=== PATIENT | male | born 1995 | race Caucasian/White ===

== ENCOUNTER 2018-11-13 10:26 | Emergency (ER) | payer OTHER, SELFPAY ==
[2018-11-13] MEDS ORDERED: ONDANSETRON 4 MG (ODT) TAB ONE (11:40)
--- NOTE | 2018-11-13 12:10 | EDPHYS ---
Physician Documentation [facility] Name: Pietro Mancera Age: 23 yrs Sex: Male : 1995 Arrival Date: 11/13/2018 Time: 10:30 Bed 20 Private MD: ED Physician Isidoro Stallworth HPI: 11/13 11:37 This 23 yrs old Male presents to ER via Ambulatory with complaints of kb Vomiting/Diarrhea. 11:38 The patient presents to the emergency department with nausea, vomiting, diarrhea. kb Onset: The symptoms/episode began/occurred this morning. Possible causes: bad food exposure, "fastfood". The symptoms are aggravated by nothing. The symptoms are alleviated by nothing. Associated signs and symptoms: Pertinent positives: diarrhea, nausea, vomiting, Pertinent negatives: abdominal pain, anorexia, belching, constipation, dysuria, fever, flatulence, GI bleeding, hematuria. Severity of symptoms: At their worst the symptoms were mild moderate in the emergency department the symptoms have resolved. The patient has not experienced similar symptoms in the past. The patient has not recently seen a physician. 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 Reports diarrhea x3-4 and vomiting x3. States he feels better now, but work told him to come get checked out. Historical: - Allergies: 10:41 No Known Allergies; hj - Home Meds: 10:41 None [Active]; hj - PMHx: 10:41 None; hj - PSHx: 10:41 None; hj - Immunization history:: Adult Immunizations up to date. - Social history:: Smoking status: Patient/guardian denies using tobacco, Patient/guardian denies using alcohol. - Ebola Screening: : Patient negative for fever greater than or equal to 101.5 degrees Fahrenheit, and additional compatible Ebola Virus Disease symptoms Patient denies exposure to infectious person Patient denies travel to an Ebola-affected area in the 21 days before illness onset. ROS: 11:38 Constitutional: Negative for fever, chills, and weight loss, ENT: Negative for injury, kb pain, and discharge, Neck: Negative for injury, pain, and swelling, Cardiovascular: Negative for chest pain, palpitations, and edema, Respiratory: Negative for shortness of breath, cough, wheezing, and pleuritic chest pain, Back: Negative for injury and pain, : Negative for injury, bleeding, discharge, and swelling, MS/Extremity: Negative for injury and deformity, Skin: Negative for injury, rash, and discoloration, Neuro: Negative for headache, weakness, numbness, tingling, and seizure. 11:38 Abdomen/GI: Positive for nausea, vomiting, and diarrhea, Negative for abdominal pain. Exam: 11:38 Constitutional: This is a well developed, well nourished patient who is awake, alert, kb and in no acute distress. Head/Face: Normocephalic, atraumatic. ENT: Nares patent. No nasal discharge, no septal abnormalities noted. Tympanic membranes are normal and external auditory canals are clear. Oropharynx with no redness, swelling, or masses, exudates, or evidence of obstruction, uvula midline. Mucous membranes moist. Neck: Trachea midline, no thyromegaly or masses palpated, and no cervical lymphadenopathy. Supple, full range of motion without nuchal rigidity, or vertebral point tenderness. No Meningismus. Chest/axilla: Normal chest wall appearance and motion. Nontender with no deformity. No lesions are appreciated. Cardiovascular: Regular rate and rhythm with a normal S1 and S2. No gallops, murmurs, or rubs. Normal PMI, no JVD. No pulse deficits. Respiratory: Lungs have equal breath sounds bilaterally, clear to auscultation and percussion. No rales, rhonchi or wheezes noted. No increased work of breathing, no retractions or nasal flaring. Abdomen/GI: Soft, non-tender, with normal bowel sounds. No distension or tympany. No guarding or rebound. No evidence of tenderness throughout. Skin: Warm, dry with normal turgor. Normal color with no rashes, no lesions, and no evidence of cellulitis. MS/ Extremity: Pulses equal, no cyanosis. Neurovascular intact. Full, normal range of motion. Neuro: Awake and alert, GCS 15, oriented to person, place, time, and situation. Cranial nerves II-XII grossly intact. Motor strength 5/5 in all extremities. Sensory grossly intact. Cerebellar exam normal. Normal gait. Vital Signs: 10:42 BP 137 / 82; Pulse 87; Resp 18; Temp 97.8(TE); Pulse Ox 99% on R/A; Weight 88.9 kg; hj Height 5 ft. 11 in. (180.34 cm); Pain 0/10; 11:40 BP 103 / 66; Pulse 71; Resp 14; Pulse Ox 97% ; bp 12:22 BP 101 / 69; Pulse 67; Resp 14; Pulse Ox 99% ; bp 10:42 Body Mass Index 27.33 (88.90 kg, 180.34 cm) hj MDM: 10:47 Patient medically screened. kb 11:38 Data reviewed: vital signs, nurses notes. Data interpreted: Pulse oximetry: on room air kb is 99 %. Interpretation: normal. 11:43 ED course: Pt prefers not to have blood work done. He believes symptoms are from kb something he ate and he is feeling better now. Will give zofran and PO challenge. . 12:07 Counseling: I had a detailed discussion with the patient and/or guardian regarding: the kb historical points, exam findings, and any diagnostic results supporting the discharge/admit diagnosis, the need for outpatient follow up, a family practitioner, to return to the emergency department if symptoms worsen or persist or if there are any questions or concerns that arise at home. ED course: Pt tolerating PO intake. Would like to go home and can hydrate with PO fluids. No abd pain. Will return if needed. . 11/13 11:10 Order name: PO challenge; Complete Time: 11:53 kb Administered Medications: 11:20 Drug: Zofran 4 mg Route: PO; bp 11:53 Follow up: Response: Nausea is decreased bp Disposition: 11/13/18 12:10 Discharged to Home. Impression: Nausea and vomiting, Diarrhea, unspecified. - Condition is Stable. - Discharge Instructions: Food Choices to Help Relieve Diarrhea, Adult, Nausea and Vomiting, Adult, [id number], Diarrhea, Adult, [id number]. - Prescriptions for Zofran 4 mg Oral Tablet - take 1 tablet by ORAL route every 6 hours As needed; 20 tablet. - Medication Reconciliation Form, Thank You Letter, Antibiotic Education, Prescription Opioid Use, Work release form form. - Follow up: Emergency Department; When: As needed; Reason: Worsening of condition. Follow up: Private Physician; When: 2 - 3 days; Reason: Recheck today's complaints, Continuance of care, Re-evaluation by your physician. Addendum: 11/15/2018 08:06 Co-signature as Attending Physician, Isidoro Stallworth MD I agree with the assessment and k dr plan of care. Signatures: Felisha Clements, SLOTTER OPERATOR-C SLOTTER OPERATOR-CkIsidoro Doshi MD MD [facility] Fernie Zurita, RN RN hj Angelo Redding, RN RN bp Corrections: (The following items were deleted from the chart) 11/13 12:23 12:10 11/13/2018 12:10 Discharged to Home. Impression: Nausea and vomiting; Diarrhea, bp unspecified. Condition is Stable. Forms are Medication Reconciliation Form, Thank You Letter, Antibiotic Education, Prescription Opioid Use. Follow up: Emergency Department; When: As needed; Reason: Worsening of condition. Follow up: Private Physician; When: 2 - 3 days; Reason: Recheck today's complaints, Continuance of care, Re-evaluation by your physician. kb
--- NOTE | 2018-11-13 12:10 | ER ---
Nurse's Notes [facility] Name: Pietro Mancera Age: 23 yrs Sex: Male : 1995 Arrival Date: 11/13/2018 Time: 10:30 Bed 20 Private MD: Diagnosis: Nausea and vomiting;Diarrhea, unspecified Presentation: 11/13 10:40 Presenting complaint: Patient states: i was sent home form work today, vomited x 2 and hj diarrhea x 4; denies abd pain; denies fever and chills; denies taking meds [employer];. Transition of care: patient was not received from another setting of care. Onset of symptoms was November 13, 2018. Risk Assessment: Do you want to hurt yourself or someone else? Patient reports no desire to harm self or others. Initial Sepsis Screen: Does the patient meet any 2 criteria? No. Patient's initial sepsis screen is negative. Does the patient have a suspected source of infection? No. Patient's initial sepsis screen is negative. Care prior to arrival: None. 10:40 Method Of Arrival: Ambulatory 10:40 Acuity: SAAD 3 hj Triage Assessment: 10:41 General: Appears in no apparent distress. uncomfortable, Behavior is calm, cooperative, hj appropriate for age. Pain: Denies pain. GI: Reports diarrhea, nausea, vomiting. Historical: - Allergies: 10:41 No Known Allergies; hj - Home Meds: 10:41 None [Active]; hj - PMHx: 10:41 None; hj - PSHx: 10:41 None; hj - Immunization history:: Adult Immunizations up to date. - Social history:: Smoking status: Patient/guardian denies using tobacco, Patient/guardian denies using alcohol. - Ebola Screening: : Patient negative for fever greater than or equal to 101.5 degrees Fahrenheit, and additional compatible Ebola Virus Disease symptoms Patient denies exposure to infectious person Patient denies travel to an Ebola-affected area in the 21 days before illness onset. Screenin:42 Abuse screen: Denies threats or abuse. Denies injuries from another. Nutritional hj screening: No deficits noted. Tuberculosis screening: No symptoms or risk factors identified. Fall Risk None identified. Assessment: 10:42 GI: Abdomen is non-distended. hj 10:45 General: SEE TRIAGE NOTE. bp 11:40 Reassessment: PO CHALLENGE IN PROCESS. bp 12:22 Reassessment: PT D/C HOME AMBULATORY, DX WITH NAUSEA/VOMITING. bp Vital Signs: 10:42 BP 137 / 82; Pulse 87; Resp 18; Temp 97.8(TE); Pulse Ox 99% on R/A; Weight 88.9 kg; hj Height 5 ft. 11 in. (180.34 cm); Pain 0/10; 11:40 BP 103 / 66; Pulse 71; Resp 14; Pulse Ox 97% ; bp 12:22 BP 101 / 69; Pulse 67; Resp 14; Pulse Ox 99% ; bp 10:42 Body Mass Index 27.33 (88.90 kg, 180.34 cm) hj ED Course: 10:30 Patient arrived in ED. rg4 10:41 Triage completed. hj 10:42 Arm band placed on right wrist. hj 10:42 Patient has correct armband on for positive identification. Placed in gown. Bed in low hj position. Call light in reach. Side rails up X 1. 10:46 Felisha Clements FNP-C is [facility]. kb 10:46 Isidoro Stallworth MD is Attending Physician. kb 10:46 Angelo Redding, RN is Primary Nurse. bp 12:23 No provider procedures requiring assistance completed. Patient did not have IV access bp during this emergency room visit. Administered Medications: 11:20 Drug: Zofran 4 mg Route: PO; bp 11:53 Follow up: Response: Nausea is decreased bp Outcome: 12:10 Discharge ordered by MD. kb 12:23 Discharged to home ambulatory. bp 12:23 Condition: stable 12:23 Discharge instructions given to patient, Instructed on discharge instructions, follow up and referral plans. medication usage, Demonstrated understanding of instructions, follow-up care, medications, Prescriptions given X 1. 12:23 Patient left the ED. bp Signatures: Felisha Clements FNP-C FNP-Fernie Marsh RN RN hj Garcia, Rubi rg4 Angelo Redding, TOOTIE RN bp Corrections: (The following items were deleted from the chart) 10:44 10:42 Pulse 87bpm; Resp 18bpm; Pulse Ox 99% RA; Temp 97.8F Temporal; 88.9 kg; Height 5 hj ft. 11 in.; BMI: 27.3; Pain 0/10; hj
== END 2018-11-13 12:23 | disposition home or self-care (01) ==
LOC: ER 10:26
DX: R19.7 Diarrhea, unspecified (principal)
CPT/HCPCS: 99283

== ENCOUNTER 2018-11-29 18:45 | Emergency (ER) | payer SELFPAY ==
--- NOTE | 2018-11-29 19:10 | ER ---
Nurse's Notes [facility] Name: Pietro Mancera Age: 23 yrs Sex: Male : 1995 Arrival Date: 11/29/2018 Time: 18:47 Bed 15 Private MD: None, None Diagnosis: Dental caries Presentation: 11/29 18:51 Presenting complaint: Patient states: Right upper molar pain 10/10 since this morning. hb Transition of care: patient was not received from another setting of care. Onset of symptoms was November 29, 2018. Risk Assessment: Do you want to hurt yourself or someone else? Patient reports no desire to harm self or others. Initial Sepsis Screen: Does the patient meet any 2 criteria? No. Patient's initial sepsis screen is negative. Does the patient have a suspected source of infection? No. Patient's initial sepsis screen is negative. Care prior to arrival: None. 18:51 Method Of Arrival: Ambulatory hb 18:51 Acuity: SAAD 4 hb Historical: - Allergies: 18:52 No Known Allergies; hb - Home Meds: 18:52 None [Active]; hb - PMHx: 18:52 None; hb - PSHx: 18:52 None; hb - Immunization history:: Adult Immunizations up to date. - Social history:: Smoking status: Patient/guardian denies using tobacco. - Ebola Screening: : No symptoms or risks identified at this time. Screenin:53 Abuse screen: Denies threats or abuse. Denies injuries from another. Nutritional hb screening: No deficits noted. Tuberculosis screening: No symptoms or risk factors identified. Fall Risk None identified. Assessment: 19:35 General: Appears in no apparent distress. comfortable, Behavior is calm, cooperative, jb4 appropriate for age. Pain: Complains of pain in upper right tooth. Pain does not radiate. Pain currently is 0 out of 10 on a pain scale. at worst was 10 out of 10 on a pain scale. Neuro: Level of Consciousness is awake, alert, obeys commands, Oriented to person, place, time, situation. Cardiovascular: Patient's skin is warm and dry. Respiratory: Airway is patent Respiratory effort is even, unlabored, Respiratory pattern is regular, symmetrical. GI: No signs and/or symptoms were reported involving the gastrointestinal system. : No signs and/or symptoms were reported regarding the genitourinary system. EENT: Throat is clear. Derm: Skin is intact, Skin is pink, warm \T\ dry. Musculoskeletal: Circulation, motion, and sensation intact. Vital Signs: 18:52 BP 124 / 92; Pulse 74; Resp 16; Temp 98.8; Pulse Ox 100% on R/A; Pain 10/10; hb ED Course: 18:47 Patient arrived in ED. sb2 18:48 None, None is Private Physician. sb2 18:52 Triage completed. hb 18:52 Arm band placed on. hb 18:59 Scotty Rizzo NP is PHCP. pm1 18:59 Garrison Hernandez MD is Attending Physician. pm1 19:07 Magan Alfonso, RN is Primary Nurse. jb4 19:35 Patient has correct armband on for positive identification. Bed in low position. Call jb4 light in reach. Side rails up X 1. Pulse ox on. NIBP on. 19:43 No provider procedures requiring assistance completed. Patient did not have IV access jb4 during this emergency room visit. Administered Medications: 19:36 Drug: [place] 10 mg-325 mg 1 tabs Route: PO; jb4 19:36 Follow up: Response: No adverse reaction jb4 Outcome: 19:10 Discharge ordered by MD. pm1 19:35 Discharged to home ambulatory, with friend. jb4 19:35 Condition: stable 19:35 Discharge instructions given to patient, Instructed on discharge instructions, follow up and referral plans. medication usage, Demonstrated understanding of instructions, follow-up care, medications, Prescriptions given X 2. 19:44 Patient left the ED. jb4 Signatures: Scotty Rizzo NP LINE MAINTENANCE TECHNICIAN pm1 Tabby De Leon RN RN Magan Alfonso, RN RN jb4 Luz Quintero sb2
--- NOTE | 2018-11-29 19:11 | EDPHYS ---
Physician Documentation [facility] Name: Pietro Mancera Age: 23 yrs Sex: Male : 1995 Arrival Date: 11/29/2018 Time: 18:47 Bed 15 Private MD: None, None ED Physician Garrison Hernandez HPI: 11/29 19:06 This 23 yrs old Male presents to ER via Ambulatory with complaints of pm1 Toothache. 19:06 The patient presents with pain. The problem is located in the upper left third molar. pm1 Onset: The symptoms/episode began/occurred this morning. Duration: The symptoms are continuous. Modifying factors: The symptoms are alleviated by nothing, the symptoms are aggravated by air, chewing, food. Associated signs and symptoms: Pertinent negatives: chills, dysphagia, fever, inability to eat, nausea, redness in area, swelling, vomiting. Severity of symptoms: in the emergency department the symptoms are actually worse. decayed tooth present for multiple months. The patient has not recently seen a physician. Historical: - Allergies: 18:52 No Known Allergies; hb - Home Meds: 18:52 None [Active]; hb - PMHx: 18:52 None; hb - PSHx: 18:52 None; hb - Immunization history:: Adult Immunizations up to date. - Social history:: Smoking status: Patient/guardian denies using tobacco. - Ebola Screening: : No symptoms or risks identified at this time. ROS: 19:06 Constitutional: Negative for fever, chills, and weight loss, Eyes: Negative for injury, pm1 pain, redness, and discharge, Neck: Negative for injury, pain, and swelling. 19:06 Cardiovascular: Negative for chest pain, palpitations, and edema, Respiratory: Negative for shortness of breath, cough, wheezing, and pleuritic chest pain, Abdomen/GI: Negative for abdominal pain, nausea, vomiting, diarrhea, and constipation, Back: Negative for injury and pain, MS/Extremity: Negative for injury and deformity, Skin: Negative for injury, rash, and discoloration, Neuro: Negative for headache, weakness, numbness, tingling, and seizure. 19:06 ENT: Positive for dental pain, Negative for drainage from ear(s), ear pain, rhinorrhea, sinus congestion, sinus pain, sore throat, difficulty swallowing, difficulty handling secretions. Exam: 19:06 Constitutional: This is a well developed, well nourished patient who is awake, alert, pm1 and in no acute distress. Head/Face: Normocephalic, atraumatic. Eyes: Pupils equal round and reactive to light, extra-ocular motions intact. Lids and lashes normal. Conjunctiva and sclera are non-icteric and not injected. Cornea within normal limits. Periorbital areas with no swelling, redness, or edema. 19:06 Neck: Trachea midline, no thyromegaly or masses palpated, and no cervical lymphadenopathy. Supple, full range of motion without nuchal rigidity, or vertebral point tenderness. No Meningismus. Chest/axilla: Normal chest wall appearance and motion. Nontender with no deformity. No lesions are appreciated. Cardiovascular: Regular rate and rhythm with a normal S1 and S2. No gallops, murmurs, or rubs. Normal PMI, no JVD. No pulse deficits. Respiratory: Lungs have equal breath sounds bilaterally, clear to auscultation and percussion. No rales, rhonchi or wheezes noted. No increased work of breathing, no retractions or nasal flaring. Back: No spinal tenderness. No costovertebral tenderness. Full range of motion. Skin: Warm, dry with normal turgor. Normal color with no rashes, no lesions, and no evidence of cellulitis. MS/ Extremity: Pulses equal, no cyanosis. Neurovascular intact. Full, normal range of motion. 19:06 ENT: External ear(s): are unremarkable, Ear canal(s): are normal, TM's: are normal, Nose: is normal, Mouth: is normal, no abscess, no drooling, (-) tongue elevation (-) trismus Posterior pharynx: is normal, airway is patent, no erythema, no exudate, no peritonsilar mass, no pooling of secretions, no swelling, Dental exam: abscess, is not appreciated, dental caries, that is moderate, specifically in the upper left third molar (#16). 19:06 Neuro: Orientation: is normal, Motor: is normal, moves all fours, Gait: is steady, at a normal pace, without difficulty. Vital Signs: 18:52 BP 124 / 92; Pulse 74; Resp 16; Temp 98.8; Pulse Ox 100% on R/A; Pain 10/10; hb MDM: 18:59 Patient medically screened. pm1 19:09 Data reviewed: vital signs. Data interpreted: Pulse oximetry: on room air is 100 %. pm1 Interpretation: normal. Counseling: I had a detailed discussion with the patient and/or guardian regarding: the historical points, exam findings, and any diagnostic results supporting the discharge/admit diagnosis, the need for outpatient follow up, for definitive care, a dentist, to return to the emergency department if symptoms worsen or persist or if there are any questions or concerns that arise at home. Administered Medications: 19:36 Drug: [place] 10 mg-325 mg 1 tabs Route: PO; jb4 19:36 Follow up: Response: No adverse reaction jb4 Disposition: 11/29/18 19:10 Discharged to Home. Impression: Dental caries. - Condition is Stable. - Discharge Instructions: Dental Pain. - Prescriptions for Amoxicillin 500 mg Oral Capsule - take 1 capsule by ORAL route every 8 hours for 10 days; 30 tablet. Tylenol- Codeine #3 300-30 mg Oral Tablet - take 2 tablets by ORAL route every 6 hours As needed; 20 tablet. - Medication Reconciliation Form, Thank You Letter, Antibiotic Education, Prescription Opioid Use, Work release form form. - Follow up: Emergency Department; When: As needed; Reason: Worsening of condition. Follow up: Private Physician; When: 2 - 3 days; Reason: Recheck today's complaints, Continuance of care, Re-evaluation by your physician. - Problem is new. - Symptoms have improved. Addendum: 12/01/2018 07:13 Co-signature as Attending Physician, Garrison Hernandez MD. r n Signatures: Garrison Hernandez MD MD rn Marinas, Patrick, NP SUPPORT SERVICE TECH pm1 Tabby De Leon RN RN Magan Kelley RN RN jb4 Corrections: (The following items were deleted from the chart) 11/29 19:44 19:10 11/29/2018 19:10 Discharged to Home. Impression: Dental caries. Condition is jb4 Stable. Forms are Medication Reconciliation Form, Thank You Letter, Antibiotic Education, Prescription Opioid Use. Follow up: Emergency Department; When: As needed; Reason: Worsening of condition. Follow up: Private Physician; When: 2 - 3 days; Reason: Recheck today's complaints, Continuance of care, Re-evaluation by your physician. Problem is new. Symptoms have improved. pm1
[2018-11-29] MEDS ORDERED: HYDROCODONE/APAP 10/325 TAB ONE (19:23)
== END 2018-11-29 19:44 | disposition home or self-care (01) ==
LOC: ER 18:45
DX: K02.9 Dental caries, unspecified (principal)
CPT/HCPCS: 99283

== ENCOUNTER 2019-07-29 19:54 | Emergency (ER) | payer SELFPAY ==
[2019-07-29] MEDS ORDERED: LIDOCAINE 1% W/EPI 1:100,000 MDV 20 ML VIAL ONE (21:28)
[2019-07-29] MEDS ORDERED: TETANUS & DIPHTHERIA TOX,ADULT 0.5 ML VIAL ONE (21:45)
[2019-07-29] MEDS ORDERED: HYDROCODONE/APAP 7.5/325 MG TAB ONE ×2 (22:07→22:16)
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
--- NOTE | 2019-07-30 09:48 | RAD REPORT ---
EXAM DESCRIPTION: CT - Head C Spine Mpr Wo Con - 07/29/2019 9:36 pm CLINICAL HISTORY: Trauma. COMPARISON: None. TECHNIQUE: CT scan of the brain and cervical spine without IV contrast. This exam was performed acco rding to our departmental dose-optimization program, which includes automated exposure control, adjus tment of the mA and/or kV according to patient size and/or use of iterative reconstruction technique. FINDINGS: BRAIN: The ventricles, cisterns, and sulci are age-appropriate. No evidence of acute infarction, intracrania l hemorrhage, extra-axial fluid collection, or midline shift. No air-fluid levels are seen in the par anasal sinuses to suggest acute sinusitis. No depressed skull fracture. CERVICAL SPINE: No acute cervical fracture or prevertebral soft tissue swelling. There is straightening of the normal cervical lordosis, which may be due to cervical collar, muscle spasm, or patient positioning. The fa cet joints and disc spaces are preserved. No advanced spinal canal stenosis. IMPRESSION: 1. No acute intracranial hemorrhage. 2. No acute fracture or subluxation of the cervical spine. Electronically signed by: Shimon Tsang MD 07/29/2019 9:45 PM CDT Due to temporary technical issues with the PACS/Fluency reporting system, reports are being signed by the in house radiologist as a courtesy to ensure prompt reporting. The interpreting radiologist is f ully responsible for the content of the report.
== END 2019-07-29 22:54 | disposition home or self-care (01) ==
LOC: ER 19:54
PROC: 0JQ00ZZ Repair Scalp Subcutaneous Tissue and Fascia, Open Approach (ICD-10-PCS; principal; 2019-07-29)
DX: S01.01XA Laceration without foreign body of scalp, initial encounter (principal); W50.0XXA Accidental hit or strike by another person, initial encounter; Y93.11 Activity, swimming; Z23 Encounter for immunization
CPT/HCPCS: 70450; 72125; 90471; 90714; 99284

== ENCOUNTER 2019-08-10 14:29 | Emergency (ER) | payer SELFPAY ==
--- NOTE | 2019-08-10 14:54 | ER ---
Nurse's Notes [facility] Name: Pietro Mancera Age: 24 yrs Sex: Male : 1995 Arrival Date: 08/10/2019 Time: 14:31 Bed Waiting Private MD: None, None Diagnosis: Encounter for removal of sutures-damion Presentation: 08/10 14:50 Presenting complaint: Patient states: He had damion put in 12 days ago, now he is here aj1 to have them taken out. Transition of care: patient was not received from another setting of care. Onset of symptoms was 2018. Risk Assessment: Do you want to hurt yourself or someone else? Patient reports no desire to harm self or others. Initial Sepsis Screen: Does the patient meet any 2 criteria? No. Patient's initial sepsis screen is negative. Does the patient have a suspected source of infection? No. Patient's initial sepsis screen is negative. 14:50 Method Of Arrival: Ambulatory aj 14:50 Acuity: SAAD 5 aj1 14:52 Care prior to arrival: None. aj Triage Assessment: 14:50 General: Appears in no apparent distress. comfortable, Behavior is calm, cooperative, aj1 appropriate for age. Pain: Denies pain. Neuro: Level of Consciousness is awake, alert, obeys commands. Cardiovascular: Patient's skin is warm and dry. Respiratory: Airway is patent Respiratory effort is even, unlabored, Respiratory pattern is regular, symmetrical. GI: No signs and/or symptoms were reported involving the gastrointestinal system. : No signs and/or symptoms were reported regarding the genitourinary system. Derm: No signs and/or symptoms reported regarding the dermatologic system. Skin is pink, warm \T\ dry. normal. Musculoskeletal: No signs and/or symptoms reported regarding the musculoskeletal system. Circulation, motion, and sensation intact. Historical: - Allergies: 14:50 No Known Allergies; aj1 - Home Meds: 14:50 None [Active]; aj1 - PMHx: 14:50 None; aj1 - PSHx: 14:50 None; aj1 - Immunization history:: Adult Immunizations up to date. - Social history:: Smoking status: Patient/guardian denies using tobacco. - Ebola Screening: : Patient denies travel to an Ebola-affected area in the 21 days before illness onset. Screenin:51 Abuse screen: Denies threats or abuse. Denies injuries from another. Nutritional aj1 screening: No deficits noted. Tuberculosis screening: No symptoms or risk factors identified. Fall Risk None identified. Assessment: 14:51 Reassessment: see triage assessment. General: Appears in no apparent distress. aj1 comfortable, Behavior is calm, cooperative, appropriate for age. Vital Signs: 14:50 BP 125 / 83; Pulse 60; Resp 18; Temp 97.4; Pulse Ox 100% on R/A; Weight 86.18 kg (R); aj1 Height 5 ft. 11 in. (180.34 cm) (R); Pain 0/10; 14:50 Body Mass Index 26.50 (86.18 kg, 180.34 cm) aj1 ED Course: 14:31 Patient arrived in ED. mr 14:31 None, None is Private Physician. mr 14:35 Felisha Clements [facility]C [facility] kb 14:35 Garrison Hernandez MD is Attending Physician. kb 14:50 Triage completed. aj1 14:50 Arm band placed on Patient placed in an exam room. aj1 14:51 Patient has correct armband on for positive identification. Bed in low position. Call aj1 light in reach. Side rails up X 1. 14:51 No provider procedures requiring assistance completed. aj1 14:52 Patient did not have IV access during this emergency room visit. aj1 Administered Medications: No medications were administered Outcome: 14:51 Discharged to home ambulatory. aj1 14:51 Condition: good 14:51 Discharge instructions given to patient, Instructed on discharge instructions, follow up and referral plans. Demonstrated understanding of instructions, follow-up care. 14:53 Discharge ordered by . kb 14:55 Patient left the ED. aj1 Signatures: Felisha Clements FNP-C FNP-Ckb Johnson, Angela RN RN aj1 Jenna Schilling mr
--- NOTE | 2019-08-10 14:55 | EDPHYS ---
Physician Documentation [facility] Name: Pietro Mancera Age: 24 yrs Sex: Male : 1995 Arrival Date: 08/10/2019 Time: 14:31 Bed Waiting Private MD: None, None ED Physician Garrison Hernandez HPI: 08/10 14:50 This 24 yrs old Male presents to ER via Unassigned with complaints of Staple kb Removal. 14:50 The patient has damion on the scalp. Previous treatment: The patient was initially kb treated 12 day(s) ago, the care was rendered at [facility], Treatment type: The patient's original treatment included damion. Sutures/damion progress: The patient has no c/o's. The wound is well-healing with no redness, swelling, discharge, or dehiscence reported. The patient has not experienced similar symptoms in the past. The patient has not recently seen a physician. Historical: - Allergies: 14:50 No Known Allergies; aj1 - Home Meds: 14:50 None [Active]; aj1 - PMHx: 14:50 None; aj1 - PSHx: 14:50 None; aj1 - Immunization history:: Adult Immunizations up to date. - Social history:: Smoking status: Patient/guardian denies using tobacco. - Ebola Screening: : Patient denies travel to an Ebola-affected area in the 21 days before illness onset. ROS: 14:52 Constitutional: Negative for fever, chills, and weight loss, Cardiovascular: Negative kb for chest pain, palpitations, and edema, Respiratory: Negative for shortness of breath, cough, wheezing, and pleuritic chest pain, Abdomen/GI: Negative for abdominal pain, nausea, vomiting, diarrhea, and constipation, MS/Extremity: Negative for injury and deformity, Neuro: Negative for headache, weakness, numbness, tingling, and seizure. 14:52 Skin: Positive for damion in place top of scalp. Exam: 14:51 Constitutional: This is a well developed, well nourished patient who is awake, alert, kb and in no acute distress. Head/Face: Normocephalic, atraumatic. Chest/axilla: Normal chest wall appearance and motion. Nontender with no deformity. No lesions are appreciated. Cardiovascular: Regular rate and rhythm with a normal S1 and S2. No gallops, murmurs, or rubs. Normal PMI, no JVD. No pulse deficits. Respiratory: Lungs have equal breath sounds bilaterally, clear to auscultation and percussion. No rales, rhonchi or wheezes noted. No increased work of breathing, no retractions or nasal flaring. Abdomen/GI: Soft, non-tender, with normal bowel sounds. No distension or tympany. No guarding or rebound. No evidence of tenderness throughout. MS/ Extremity: Pulses equal, no cyanosis. Neurovascular intact. Full, normal range of motion. Neuro: Awake and alert, GCS 15, oriented to person, place, time, and situation. Cranial nerves II-XII grossly intact. Motor strength 5/5 in all extremities. Sensory grossly intact. Cerebellar exam normal. Normal gait. 14:51 Skin: Wound recheck: Staple laceration closure: the wound is healing well, the edges are well approximated, no evidence of dehiscence, no drainage, no erythema, no swelling. Vital Signs: 14:50 BP 125 / 83; Pulse 60; Resp 18; Temp 97.4; Pulse Ox 100% on R/A; Weight 86.18 kg (R); aj1 Height 5 ft. 11 in. (180.34 cm) (R); Pain 0/10; 14:50 Body Mass Index 26.50 (86.18 kg, 180.34 cm) aj1 Procedures: 14:51 Suture/Staple removal: Removed 7 damion, from scalp, site appears well healed, Patient kb tolerated well. MDM: 14:50 Patient medically screened. kb 14:51 Data reviewed: vital signs, nurses notes. Data interpreted: Pulse oximetry: on room air kb is 100 %. Interpretation: normal. Counseling: I had a detailed discussion with the patient and/or guardian regarding: the historical points, exam findings, and any diagnostic results supporting the discharge/admit diagnosis, the need for outpatient follow up, a family practitioner, to return to the emergency department if symptoms worsen or persist or if there are any questions or concerns that arise at home. Administered Medications: No medications were administered Disposition: 18:31 Co-signature as Attending Physician, Garrison Hernandez MD. rn Disposition: 08/10/19 14:53 Discharged to Home. Impression: Encounter for removal of sutures - damion. - Condition is Stable. - Discharge Instructions: Suture Removal, Care After. - Medication Reconciliation Form, Thank You Letter, Antibiotic Education, Prescription Opioid Use form. - Follow up: Emergency Department; When: As needed; Reason: Worsening of condition. Follow up: Private Physician; When: 2 - 3 days; Reason: Recheck today's complaints, Continuance of care, Re-evaluation by your physician. Signatures: Felisha Clements, BAN-C BAN-Leidy Barragan RN RN aj1 Garrison Hernandez MD MD broadcast journalist: (The following items were deleted from the chart) 14:55 14:53 08/10/2019 14:53 Discharged to Home. Impression: Encounter for removal of sutures aj1 - damion. Condition is Stable. Forms are Medication Reconciliation Form, Thank You Letter, Antibiotic Education, Prescription Opioid Use. Follow up: Emergency Department; When: As needed; Reason: Worsening of condition. Follow up: Private Physician; When: 2 - 3 days; Reason: Recheck today's complaints, Continuance of care, Re-evaluation by your physician. kb
[2019-08-10 15:02] VITALS: BP 125/83; TEMP 97.4; O2SAT 100
== END 2019-08-10 14:55 | disposition home or self-care (01) ==
LOC: ER 14:29
DX: Z48.02 Encounter for removal of sutures (principal)
CPT/HCPCS: 99281

== ENCOUNTER 2020-08-15 06:34 | Emergency (ER) | payer SELFPAY ==
[2020-08-15 06:58] LABS: Absolute Lymphocytes (CBC) 2.9 K/uL (0.7-4.9); Hematocrit 46.6 % (39.6-49.0); Lymphocytes % 52.4 % (15.3-44.8); MPV 7.5 fL (7.6-11.3); RBC Red Blood Cell Count 5.36 M/uL (4.33-5.43)
[2020-08-15 07:17] LABS: Albumin 4.9 g/dL (3.4-5.0); Bilirubin Direct 0.3 mg/dL (0-0.2); Bilirubin Total 1.7 mg/dL (0.2-1.0); Potassium 3.5 mmol/L (3.5-5.1); Protein, Total 8.6 g/dL (6.4-8.2)
[2020-08-15 07:38] LABS: Blood Morphology Comment NOT SEEN (NOT SEEN); Platelet Estimate ADEQ
[2020-08-15] MEDS ORDERED: ONDANSETRON 4 MG/2 ML VIAL ONE (07:53)
--- NOTE | 2020-08-15 07:54 | RAD REPORT ---
EXAM DESCRIPTION: CT - Abdomen Pelvis W Contrast - 08/15/2020 7:34 am CLINICAL HISTORY: upper abd pain, hematemesis COMPARISON: No comparisons TECHNIQUE: Biphasic, helical CT imaging of the abdomen and pelvis was performed following 100 ml non -ionic IV contrast. No oral contrast administered. All CT scans are performed using dose optimization technique as appropriate and may include automated exposure control or mA/KV adjustment according to patient size. FINDINGS: No suspicious findings in the lung bases. Liver is borderline fatty infiltrated. No focal liver lesion. Portal vein is unremarkable. Gallbladde r and biliary tree within normal limits. No pancreatitis or acute pancreatic process. Spleen is unrem arkable. Symmetric renal function is seen with no hydronephrosis or suspicious renal mass. No pyelonephritis o r acute parenchymal process. No bladder abnormalities. No adrenal abnormalities. No gastric wall thickening, mass or edema. No stranding in the fatty tissues adjacent to the stomach. Small bowel and colon show no active process. Appendix is normal. No free air, free fluid or inflammatory stranding. No hernia, mass or bulky lymphadenopathy. No suspicious bony findings. IMPRESSION: Contrast enhanced CT abdomen and pelvis showing no significant or suspicious finding.
[2020-08-15] MEDS ORDERED: MAGNE/ALUM HYDROXD 30 ML UCUP ONE (08:07)
[2020-08-15] MEDS ORDERED: NA CHLORIDE 0.9% 1,000 ML ONE (08:07)
[2020-08-15] MEDS ORDERED: PANTOPRAZOLE 40 MG INJ ONE (08:07)
[2020-08-15] MEDS ORDERED: LIDOCAINE VISCOUS 2% SOLN 15 ML UDC ONE (08:07)
--- NOTE | 2020-08-15 08:21 | RAD REPORT ---
EXAM DESCRIPTION: US - Abdomen Exam Limited - 08/15/2020 7:49 am CLINICAL HISTORY: EPIGASTRIC PAIN COMPARISON: Abdomen Pelvis W Contrast dated 08/15/2020 FINDINGS: No gallstones, sludge or other abnormalities within the gallbladder lumen. There is no wal l thickening or pericholecystic fluid. No common duct stone or biliary tree dilatation identified. IMPRESSION: Normal gallbladder and biliary tree ultrasound.
--- NOTE | 2020-08-15 09:23 | EDPHYS ---
Physician Documentation [facility] Name: Pietro Mancera Age: 25 yrs Sex: Male : 1995 Arrival Date: 08/15/2020 Time: 06:35 Bed 6 Private MD: ED Physician Garrison Hernandez HPI: 08/15 07:36 This 25 yrs old Male presents to ER via Ambulatory with complaints of rn Vomiting, Abdominal Pain. 07:36 The patient presents to the emergency department with nausea, vomiting, diarrhea, rn abdominal pain. 07:37 Onset: The symptoms/episode began/occurred 2 day(s) ago. Possible causes: unknown. The rn symptoms are aggravated by nothing. The symptoms are alleviated by nothing. Severity of symptoms: At their worst the symptoms were mild in the emergency department the symptoms are unchanged. The patient has experienced a previous episode. The patient has not recently seen a physician. Reports upper abd pain, + nausea/vomiting/diarrhea. Reports small amount of bright red blood in emesis, noticed blood after 1-2 days of vomiting, no dark stool or blood in stool. Reports hx of acid reflux and gastritis in past, similar to this episode but didn't throw up blood last time. . Historical: - Allergies: 06:48 No Known Allergies; ea - Home Meds: 06:48 None [Active]; ea - PMHx: 06:48 None; ea - PSHx: 06:48 None; ea - Immunization history:: Adult Immunizations up to date. - Social history:: Smoking status: Patient denies any tobacco usage or history of. - Family history:: not pertinent. - Hospitalizations: : No recent hospitalization is reported. ROS: 07:37 Constitutional: Negative for fever, chills, and weight loss, Eyes: Negative for injury, rn pain, redness, and discharge, Cardiovascular: Negative for chest pain, palpitations, and edema, Respiratory: Negative for shortness of breath, cough, wheezing, and pleuritic chest pain, Abdomen/GI: Negative for constipation MS/Extremity: Negative for injury and deformity, Skin: Negative for injury, rash, and discoloration, Neuro: Negative for headache, weakness, numbness, tingling, and seizure. Exam: 07:37 Constitutional: This is a well developed, well nourished patient who is awake, alert, rn and in no acute distress. Head/Face: Normocephalic, atraumatic. ENT: dry MM Cardiovascular: Regular rate and rhythm. No pulse deficits. Respiratory: Lungs have equal breath sounds bilaterally, clear to auscultation and percussion. No rales, rhonchi or wheezes noted. No increased work of breathing, no retractions or nasal flaring. Abdomen/GI: Soft, non-tender, with normal bowel sounds. No distension or tympany. No guarding or rebound. No evidence of tenderness throughout. Skin: Warm, dry MS/ Extremity: Pulses equal, no cyanosis. Neurovascular intact. Full, normal range of motion. Equal circumference. Neuro: Awake and alert, GCS 15, oriented to person, place, time, and situation. Cranial nerves II-XII grossly intact. Motor strength 5/5 in all extremities. Sensory grossly intact. Vital Signs: 06:45 BP 143 / 106; Pulse 65; Resp 18; Temp 98.4; Pulse Ox 98% ; Weight 86.18 kg; Height 5 ea ft. 11 in. (180.34 cm); 06:51 BP 126 / 93; Pulse 60; Resp 18; Pulse Ox 98% ; ea 09:18 BP 107 / 83; Pulse 57; Resp 17; Pulse Ox 100% ; jl7 06:45 Body Mass Index 26.50 (86.18 kg, 180.34 cm) ea MDM: 07:00 Patient medically screened. rn 09:21 Differential diagnosis: gastritis, joaquín-blas. Data reviewed: vital signs, nurses rn notes, lab test result(s), radiologic studies, and as a result, I will discharge patient. Counseling: I had a detailed discussion with the patient and/or guardian regarding: the historical points, exam findings, and any diagnostic results supporting the discharge/admit diagnosis, lab results, radiology results, the need for outpatient follow up, to return to the emergency department if symptoms worsen or persist or if there are any questions or concerns that arise at home. Response to treatment: the patient's symptoms have markedly improved after treatment, and as a result, I will discharge patient. Special discussion: I discussed with the patient/guardian in detail that at this point there is no indication for admission to the hospital. It is understood, however, that if the symptoms persist or worsen the patient needs to return immediately for re-evaluation. Based on the history and exam findings, there is no indication for further emergent testing or inpatient evaluation. I discussed with the patient/guardian the need to see the hematologist oncologist for further evaluation of the symptoms. ED course: Pt improved, most likely gastritis or small tear, neg u/s and ct abdomen, h/ normal vitals normal, will dc home with antacids, zofran prn, and spoke at length with patient regarding acid control and possible ulcer/cancer in future. . 08/15 06:40 Order name: Basic Metabolic Panel; Complete Time: 07:17 tw4 08/15 06:40 Order name: CBC with Diff; Complete Time: 07:42 tw4 08/15 06:40 Order name: Hepatic Function; Complete Time: 07:17 tw4 08/15 06:40 Order name: Lipase; Complete Time: 07:17 tw4 08/15 07:05 Order name: Manual Differential; Complete Time: 07:42 EDMS 08/15 07:19 Order name: US Abdomen Limited; Complete Time: 08:32 rn 08/15 06:40 Order name: IV Saline Lock; Complete Time: 06:51 tw4 08/15 06:40 Order name: Labs collected and sent; Complete Time: 06:51 tw4 08/15 07:19 Order name: CT Abd/Pelvis - IV Contrast Only; Complete Time: 08:32 rn Administered Medications: 07:40 Drug: Zofran (Ondansetron) 4 mg Route: IVP; Site: right antecubital; jl7 07:47 Follow up: Response: No adverse reaction; Nausea is decreased jl7 07:55 Drug: GI Cocktail without - (Maalox Suspension 30 ml, Lidocaine Liquid 2 % 15 aa5 ml) Route: PO; 10:07 Follow up: Response: No adverse reaction jl7 07:55 Drug: NS 0.9% 1000 ml Route: IV; Rate: 1000 ml; Site: right antecubital; aa5 09:00 Follow up: IV Status: Completed infusion; IV Intake: 1000ml jl7 07:58 Drug: ProTONIX 40 mg Route: IVP; Site: right antecubital; aa5 10:07 Follow up: Response: No adverse reaction jl7 Disposition: 08/15/20 09:23 Discharged to Home. Impression: Gastritis, unspecified. - Condition is Stable. - Discharge Instructions: Gastritis, Adult. - Prescriptions for Zofran ODT 4 mg Oral tablet,disintegrating - place 1 tablet by TRANSLINGUAL route every 8 hours As needed; 20 tablet. Protonix 40 mg Oral Tablet - take 1 tablet by ORAL route once daily; 30 tablet. - Medication Reconciliation Form, Thank You Letter, Antibiotic Education, Prescription Opioid Use, Work release form form. - Follow up: George Campbell MD; When: As needed; Reason: Recheck today's complaints, Re-evaluation by your physician. - Problem is new. - Symptoms have improved. Signatures: Dispatcher [employer] EDMS Garrison Hernandez MD MD rn Calderon, Audri, RN RN aa5 Kath Muniz RN RN jl7 Dawn Antoine RN RN Ole Triplett MD MD tw4 Corrections: (The following items were deleted from the chart) 06:46 06:40 Urine Test ordered. tw4 ll2 10:07 09:23 08/15/2020 09:23 Discharged to Home. Impression: Gastritis, unspecified. jl7 Condition is Stable. Forms are Medication Reconciliation Form, Thank You Letter, Antibiotic Education, Prescription Opioid Use. Follow up: George Campbell; When: As needed; Reason: Recheck today's complaints, Re-evaluation by your physician. Problem is new. Symptoms have improved. rn
--- NOTE | 2020-08-15 09:23 | ER ---
Nurse's Notes [facility] Name: Pietro Mancera Age: 25 yrs Sex: Male : 1995 Arrival Date: 08/15/2020 Time: 06:35 Bed 6 Private MD: Diagnosis: Gastritis, unspecified Presentation: 08/15 06:45 Chief complaint: Patient states: Pt reports 2 days ago he started having nausea, blood ea tinged vomit and abdominal pain. Pt states "I feel like I may have an ulcer". Coronavirus screen: At this time, the client does not indicate any symptoms associated with coronavirus-19. Ebola Screen: No symptoms or risks identified at this time. Initial Sepsis Screen: Does the patient meet any 2 criteria? No. Patient's initial sepsis screen is negative. Does the patient have a suspected source of infection? No. Patient's initial sepsis screen is negative. Risk Assessment: Do you want to hurt yourself or someone else? Patient reports no desire to harm self or others. Onset of symptoms was August 15, 2020. 06:45 Method Of Arrival: Ambulatory ea 06:45 Acuity: SAAD 3 ea Triage Assessment: 06:50 General: Appears in no apparent distress. Behavior is calm, cooperative, appropriate ea for age. GI: Reports epigastric pain, nausea, vomiting. Historical: - Allergies: 06:48 No Known Allergies; ea - Home Meds: 06:48 None [Active]; ea - PMHx: 06:48 None; ea - PSHx: 06:48 None; ea - Immunization history:: Adult Immunizations up to date. - Social history:: Smoking status: Patient denies any tobacco usage or history of. - Family history:: not pertinent. - Hospitalizations: : No recent hospitalization is reported. Screenin:47 Abuse screen: Denies threats or abuse. Nutritional screening: No deficits noted. ea Tuberculosis screening: No symptoms or risk factors identified. Fall Risk None identified. Assessment: 06:49 General: Appears in no apparent distress. Behavior is calm, cooperative, appropriate ea for age. Pain: Complains of pain in epigastric area. Neuro: Level of Consciousness is awake, alert, obeys commands, Oriented to person, place, time, situation. Cardiovascular: Patient's skin is warm and dry. Respiratory: Airway is patent Respiratory effort is even, unlabored, Respiratory pattern is regular, symmetrical. GI: Abdomen is non-distended. Derm: Skin is pink, warm \\T\\ dry. 07:00 Reassessment: Patient is alert, oriented x 3, equal unlabored respirations, skin aa5 warm/dry/pink. Pt sitting up in bed. Report received from TOOTIE Rosen. . 07:46 Reassessment: Raegan from CT called, pt vomiting post IV contrast. Medicated with Zofran jl7 as ordered while pt was on the way to US. Pt reported decreased nasuea. 07:55 Reassessment: Patient is alert, oriented x 3, equal unlabored respirations, skin aa5 warm/dry/pink. Pt back from CT and US. Awaiting results, pt notified of wait time. . 10:05 Reassessment: Patient appears in no apparent distress at this time. Patient is alert, jl7 oriented x 3, equal unlabored respirations, skin warm/dry/pink. Vital Signs: 06:45 BP 143 / 106; Pulse 65; Resp 18; Temp 98.4; Pulse Ox 98% ; Weight 86.18 kg; Height 5 ea ft. 11 in. (180.34 cm); 06:51 BP 126 / 93; Pulse 60; Resp 18; Pulse Ox 98% ; ea 09:18 BP 107 / 83; Pulse 57; Resp 17; Pulse Ox 100% ; jl7 06:45 Body Mass Index 26.50 (86.18 kg, 180.34 cm) ea ED Course: 06:35 Patient arrived in ED. cl3 06:47 Triage completed. ea 06:47 Patient has correct armband on for positive identification. Bed in low position. Call ea light in reach. Side rails up X 1. 06:47 Arm band placed on right wrist. Patient placed in an exam room, on a stretcher, on ea pulse oximetry. 06:51 Initial lab(s) drawn, by me, sent to lab. Inserted saline lock: 20 gauge in right rv antecubital area, using aseptic technique. Blood collected. 07:00 Garrison Hernandez MD is Attending Physician. rn 07:06 Tianna Singh, TOOTIE is Primary Nurse. aa5 07:34 CT Abd/Pelvis - IV Contrast Only In Process Unspecified. EDMS 07:50 US Abdomen Limited In Process Unspecified. EDMS 09:23 Campbell, George, MD is Referral Physician. rn 10:06 No provider procedures requiring assistance completed. IV discontinued, intact, jl7 bleeding controlled, No redness/swelling at site. Pressure dressing applied. Administered Medications: 07:40 Drug: Zofran (Ondansetron) 4 mg Route: IVP; Site: right antecubital; jl7 07:47 Follow up: Response: No adverse reaction; Nausea is decreased jl7 07:55 Drug: GI Cocktail without - (Maalox Suspension 30 ml, Lidocaine Liquid 2 % 15 aa5 ml) Route: PO; 10:07 Follow up: Response: No adverse reaction jl7 07:55 Drug: NS 0.9% 1000 ml Route: IV; Rate: 1000 ml; Site: right antecubital; aa5 09:00 Follow up: IV Status: Completed infusion; IV Intake: 1000ml jl7 07:58 Drug: ProTONIX 40 mg Route: IVP; Site: right antecubital; aa5 10:07 Follow up: Response: No adverse reaction jl7 Intake: 09:00 IV: 1000ml; Total: 1000ml. jl7 Outcome: :23 Discharge ordered by . rn 10:06 Discharged to home ambulatory. jl7 10:06 Condition: stable 10:06 Discharge instructions given to patient, Instructed on discharge instructions, follow up and referral plans. medication usage, Demonstrated understanding of instructions, follow-up care, medications, Prescriptions given X 2. 10:07 Patient left the ED. jl7 Signatures: Dispatcher [employer] [facility] Garrison Hernandez MD MD rn Calderon, Audri RN RN aa5 Kath Muniz RN RN jl7 Dawn Antoine RN Silas Mccoy ea, RN Portillo Branham cl3
[2020-08-15 10:13] VITALS: TEMP 98.4
[2020-08-15 10:16] VITALS: BP 107/83; O2SAT 100
== END 2020-08-15 10:07 | disposition home or self-care (01) ==
LOC: ER 06:34
DX: K29.70 Gastritis, unspecified, without bleeding (principal)
CPT/HCPCS: 36415; 74177; 76705; 80048; 80076; 83690; 85025; 96361; 96374; 96375; 99284; C9113; J2405; J7030; Q9967

== ENCOUNTER 2023-08-24 13:30 | Emergency (ER) | payer SELFPAY ==
[2023-08-24] MEDS ORDERED: methocarbamoL 750 MG TAB ONE (14:33)
[2023-08-24] MEDS ORDERED: HYDROCODONE/APAP 10/325 TAB ONE (14:33)
[2023-08-24] MEDS ORDERED: IBUPROFEN 400 MG TAB ONE (14:34)
[2023-08-24] MEDS ORDERED: predniSONE 20 MG TAB ONE (14:34)
--- NOTE | 2023-08-24 14:39 | RAD REPORT ---
EXAM DESCRIPTION: CT - Spine Lumbar Wo Con - 08/24/2023 2:27 pm CLINICAL HISTORY: Radiculopathy. Lower back pain;Pain;Radiculopathy COMPARISON: No comparisons TECHNIQUE: Axial noncontrast CT imaging of the lumbar spine was performed with coronal and sagittal re-formatted images. All CT scans are performed using dose optimization technique as appropriate and may include automated exposure control or mA/KV adjustment according to patient size. FINDINGS: No acute lumbar spine fracture seen. No aggressive marrow pattern or malalignment. Paraspinal tissues are normal in thickness. No paraspinal abscess or hematoma seen. Intervertebral disc disease assessment is inherently limited by CT. Within this limitation there is s uspected is a small disc herniation at L5-S1 present. IMPRESSION: No acute lumbar spine abnormality discerned. Small disc herniation is probably present L5-S1. Nonemergent MRI followup would suggested for better assessment.
--- NOTE | 2023-08-24 15:10 | ER ---
Nurse's Notes [facility] Name: Pietro Mancera Age: 28 yrs Sex: Male : 1995 Arrival Date: 08/24/2023 Time: 13:30 Bed 19 Private MD: Diagnosis: Low back pain;Sciatica, right side Presentation: 08/24 13:46 Chief complaint: Patient states: Back pain. Picked up tire yesterday at work when i nj1 heard a pop, i was still able to work and walk but in pain, I am unable to walk to day. Took tylenol today at 9 am. Coronavirus screen: Vaccine status: Patient reports being unvaccinated. Ebola Screen: Patient denies travel to an Ebola-affected area in the 21 days before illness onset. Initial Sepsis Screen: Does the patient meet any 2 criteria? No. Patient's initial sepsis screen is negative. Does the patient have a suspected source of infection? No. Patient's initial sepsis screen is negative. Risk Assessment: Do you want to hurt yourself or someone else? Patient reports no desire to harm self or others. Onset of symptoms was August 23, 2023. 13:46 Method Of Arrival: Wheelchair nj1 13:46 Acuity: SAAD 3 nj1 Historical: - Allergies: 13:49 No Known Allergies; nj1 - Immunization history:: Adult Immunizations up to date. - Social history:: Smoking status: Patient denies any tobacco usage or history of. Screenin:00 [facility] ED Fall Risk Assessment (Adult) Score/Fall Risk Level 0 - 2 = Low Risk nj1 Oriented to surroundings, Maintained a safe environment, Hourly rounding (assess needs \T\ fall precautionary measures) done. Abuse screen: Denies threats or abuse. Denies injuries from another. 14:00 Nutritional screening: No deficits noted. Tuberculosis screening: No symptoms or risk nj1 factors identified. Assessment: 14:00 General: Appears in no apparent distress. comfortable, Behavior is calm, cooperative, nj1 appropriate for age. Pain: Complains of pain in right low back Pain currently is 0 out of 10 on a pain scale. Aggravated by exercise, increased activity, weight bearing, Extending right leg. 14:00 Neuro: Level of Consciousness is awake, alert, obeys commands, Oriented to person, nj1 place, time, situation. Cardiovascular: Patient's skin is warm and dry. Respiratory: Airway is patent Respiratory effort is even, unlabored. Musculoskeletal: Reports pain in right low back. 15:30 Reassessment: Patient appears in no apparent distress at this time. Patient and/or nj1 family updated on plan of care and expected duration. Pain level reassessed. Patient is alert, oriented x 3, equal unlabored respirations, skin warm/dry/pink. Patient states feeling better. Patient states symptoms have improved. Vital Signs: 13:46 BP 126 / 82; Pulse 71; Resp 18; Temp 98.1(O); Pulse Ox 100% ; Weight 86.18 kg; Height 5 nj1 ft. 11 in. ; 15:30 BP 100 / 71; Pulse 66; Resp 18; Pulse Ox 100% ; Pain 0/10; nj1 13:46 Body Mass Index 26.50 (86.18 kg, 180.34 cm) nj1 15:30 Pain Scale: Adult nj ED Course: 13:31 Patient arrived in ED. rg4 13:32 Isidoro Stallworth MD is Attending Physician. kdr 13:46 Lissett Gasca RN is Primary Nurse. nj1 13:46 Arm band placed on Patient placed in an exam room, on a stretcher. ll1 13:49 Triage completed. nj1 14:00 Patient has correct armband on for positive identification. Bed in low position. Call nj1 light in reach. Adult w/ patient. Provided Education on: call light, fall precautions. 14:29 CT Lumbar Spine Wo Con In Process Unspecified. EDMS 15:30 No provider procedures requiring assistance completed. Patient did not have IV access nj1 during this emergency room visit. Administered Medications: 14:24 Drug: Roosevelt PO 10 mg-325 mg 1 tabs PO once Route: PO; nj1 15:30 Follow up: Response: No adverse reaction nj1 14:24 Drug: Methocarbamol PO 750 mg PO once; Two tabs total x1 Route: PO; nj1 15:30 Follow up: Response: No adverse reaction nj1 14:24 Drug: predniSONE PO 60 mg PO once Route: PO; nj1 15:30 Follow up: Response: No adverse reaction nj1 14:24 Drug: Ibuprofen PO 800 mg PO once Route: PO; nj1 15:30 Follow up: Response: No adverse reaction nj1 Medication: 15:40 VIS not applicable for this client. nj1 Outcome: 15:10 Discharge ordered by . kdr 15:30 Discharged to home via wheelchair, with family, nj1 15:30 Condition: stable 15:30 Discharge instructions given to patient, family, Instructed on discharge instructions, follow up and referral plans. medication usage, safety practices, Demonstrated understanding of instructions, follow-up care, medications, Prescriptions given X 4, 15:41 Patient left the ED. nj1 Signatures: Dispatcher [employer] EDMS Isidoro Stallworth MD MD kdr Garcia, Rubi rg4 Jovani Pederson, RN RN ll1 Lissett Gasca RN RN nj1 Corrections: (The following items were deleted from the chart) 15:40 15:40 [facility] ED Fall Risk Assessment (Adult) nj1 nj1 15:41 15:30 Reassessment: Patient appears in no apparent distress at this time. Patient nj1 and/or family updated on plan of care and expected duration. Pain level reassessed. Patient is alert, oriented x 3, equal unlabored respirations, skin warm/dry/pink. nj1
--- NOTE | 2023-08-24 15:10 | EDPHYS ---
Physician Documentation [facility] Name: Pietro Mancera Age: 28 yrs Sex: Male : 1995 Arrival Date: 08/24/2023 Time: 13:30 Bed 19 Private MD: ED Physician Isidoro Stallworth HPI: 08/24 16:37 This 28 yrs old Male presents to ER via Wheelchair with complaints of Back Pain. kdr 16:38 Patient states that he was picking up a tire yesterday at work. The tire weighed about kdr 200 pounds. He was trying to flip the tire over. He stated that he pulled the tire up, he felt a crunching sound in his low back. He subsequently has had pain on his right hip and radiating down into his right calf. Patient denies any changes ability to urinate or defecate. Patient denies numbness in the perineal area. Patient is otherwise stable and nontoxic-appearing. Patient's had occasional backaches but nothing of this significance.. Onset: The symptoms/episode began/occurred suddenly, yesterday. Severity of symptoms: At their worst the symptoms were moderate severe incapacitating just prior to arrival, in the emergency department the symptoms have improved mildly. The patient has not experienced similar symptoms in the past. The patient has not recently seen a physician. Historical: - Allergies: 13:49 No Known Allergies; nj1 - Immunization history:: Adult Immunizations up to date. - Social history:: Smoking status: Patient denies any tobacco usage or history of. ROS: 16:38 Constitutional: Negative for fever, chills, and weight loss, Eyes: Negative for injury, kdr pain, redness, and discharge, ENT: Negative for injury, pain, and discharge, Neck: Negative for injury, pain, and swelling, Cardiovascular: Negative for chest pain, palpitations, and edema, Respiratory: Negative for shortness of breath, cough, wheezing, and pleuritic chest pain, Abdomen/GI: Negative for abdominal pain, nausea, vomiting, diarrhea, and constipation, : Negative for injury, bleeding, discharge, and swelling, MS/Extremity: Negative for injury and deformity, Skin: Negative for injury, rash, and discoloration, Neuro: Negative for headache, weakness, numbness, tingling, and seizure activity. Psych: Negative for depression, anxiety, suicide ideation, homicidal ideation, and hallucinations, Allergy/Immunology: Negative for hives, rash, and allergies, Endocrine: Negative for neck swelling, polydipsia, polyuria, polyphagia, and marked weight changes, Hematologic/Lymphatic: Negative for swollen nodes, abnormal bleeding, and unusual bruising, 16:38 Back: Positive for decreased range of motion, pain at rest, pain with movement, radiated pain, of the lumbar area and right low back, Exam: 16:38 Constitutional: This is a well developed, well nourished patient who is awake, alert, kdr and in no acute distress. Head/Face: Normocephalic, atraumatic. Eyes: Pupils equal round and reactive to light, extra-ocular motions intact. Lids and lashes normal. Conjunctiva and sclera are non-icteric and not injected. Cornea within normal limits. Periorbital areas with no swelling, redness, or edema. Neck: Trachea midline, no thyromegaly or masses palpated, and no cervical lymphadenopathy. Supple, full range of motion without nuchal rigidity, or vertebral point tenderness. No Meningismus. Chest/axilla: Normal chest wall appearance and motion. Nontender with no deformity. No lesions are appreciated. Cardiovascular: Regular rate and rhythm with a normal S1 and S2. No gallops, murmurs, or rubs. Normal PMI, no JVD. No pulse deficits. Respiratory: Lungs have equal breath sounds bilaterally, clear to auscultation and percussion. No rales, rhonchi or wheezes noted. No increased work of breathing, no retractions or nasal flaring. MS/ Extremity: Pulses equal, no cyanosis. Neurovascular intact. Full, normal range of motion. Neuro: Awake and alert, GCS 15, oriented to person, place, time, and situation. Cranial nerves II-XII grossly intact. Motor strength 5/5 in all extremities. Sensory grossly intact. Cerebellar exam normal. Normal gait. Psych: Awake, alert, with orientation to person, place and time. Behavior, mood, and affect are within normal limits. 16:38 Neuro: Sciatic nerve pain in the right leg down to the calf., Vital Signs: 13:46 BP 126 / 82; Pulse 71; Resp 18; Temp 98.1(O); Pulse Ox 100% ; Weight 86.18 kg; Height 5 nj1 ft. 11 in. ; 15:30 BP 100 / 71; Pulse 66; Resp 18; Pulse Ox 100% ; Pain 0/10; nj1 13:46 Body Mass Index 26.50 (86.18 kg, 180.34 cm) nj1 15:30 Pain Scale: Adult nj1 MDM: 15:10 Patient medically screened. kdr 16:41 Data reviewed: vital signs, nurses notes, radiologic studies. kdr 16:41 ED course: Patient had considerable pain relief with the medication regimen and kdr dispensed in the ED. Patient was stable and happy with the care provided the plan for discharge and follow-up. . 08/24 14:15 Order name: CT Lumbar Spine Wo Con; Complete Time: 15:01 kdr Administered Medications: 14:24 Drug: [place] PO 10 mg-325 mg 1 tabs PO once Route: PO; nj1 15:30 Follow up: Response: No adverse reaction nj1 14:24 Drug: Methocarbamol PO 750 mg PO once; Two tabs total x1 Route: PO; nj1 15:30 Follow up: Response: No adverse reaction nj1 14:24 Drug: predniSONE PO 60 mg PO once Route: PO; nj1 15:30 Follow up: Response: No adverse reaction nj1 14:24 Drug: Ibuprofen PO 800 mg PO once Route: PO; nj1 15:30 Follow up: Response: No adverse reaction nj1 Disposition Summary: 08/24/23 15:10 Discharge Ordered Notes: Location: Home kdr Problem: new kdr Symptoms: have improved kdr Condition: Stable kdr Diagnosis - Low back pain kdr - Sciatica, right side kdr Followup: kdr - With: Private Physician - When: 2 - 3 days - Reason: If symptoms return, Further diagnostic work-up, Recheck today's complaints, Continuance of care, Re-evaluation by your physician Discharge Instructions: - Discharge Summary Sheet kdr - Acute Back Pain, Adult kdr - Musculoskeletal Pain kdr - Sciatica kdr - Back Exercises, [id number] kdr Forms: - Medication Reconciliation Form kdr - Thank You Letter kdr - Prescription Opioid Use kdr - Patient Portal Instructions kdr - Leadership Thank You Letter kdr Prescriptions: - Ibuprofen 600 mg Oral tablet - take 1 tablet ORAL route every 6 hours As needed take with food; 15 tablet; kdr Refills: 0, Product Selection Permitted - Cyclobenzaprine 10 mg Oral tablet - take 1 tablet ORAL route every 8 hours As needed; 12 tablet; Refills: 0, kdr Product Selection Permitted - Tramadol 50 mg Oral Tablet - take 1 tablet ORAL route every 8 hours as needed; 12 tablet; Refills: 0, kdr Product Selection Permitted - Medrol (Anthony) 4 mg Oral Tablets, Dose Pack - take 1 tablet ORAL route as directed - follow package instructions; 1 packet; kdr Refills: 0, Product Selection Permitted Signatures: Dispatcher [employer] Isidoro Hammonds MD MD kdr Lewis, Lynsay RN RN ll1 Lissett Gasca RN RN nj1
[2023-08-24 16:23] VITALS: TEMP 98.1; O2SAT 100
[2023-08-24 16:24] VITALS: BP 100/71
== END 2023-08-24 15:41 | disposition home or self-care (01) ==
LOC: ER 13:30
DX: M54.31 Sciatica, right side (principal)
CPT/HCPCS: 72131; J7512